=== PATIENT | male | born 1960 | race Caucasian/White ===

== ENCOUNTER 2020-07-14 11:53 | Inpatient (IN) | payer SELFPAY ==
[~2020-07-14] VITALS: Ht 185.4 cm; Wt 95.3 kg
[2020-07-14] MEDS ORDERED: SODIUM CHLORIDE 0.9% 1000ML 1,000 ML IV STA (12:22)
[2020-07-14] MEDS ORDERED: PROMETHAZINE 25MG/ NS 50ML (IV) IV ONE (12:30)
[2020-07-14] MEDS ORDERED: KETOROLAC TROMETHAMINE 30 MG/ML VIAL IV ONE (12:30)
[2020-07-14] MEDS ORDERED: FAMOTIDINE 20 MG/2 ML VIAL IV ONE ×2 (12:30→12:54)
[2020-07-14] MEDS ORDERED: DIATRIZOATE MEGL/DIATRIZOA SOD 30 ML BTL PO ONE (12:35)
[2020-07-14] MEDS ORDERED: MIRALAX17 GM PO (12:39)
[2020-07-14] MEDS ORDERED: ZOFRAN4 MG PO (12:39)
[2020-07-14] MEDS ORDERED: MAGNESIUM CITR296 ML (12:39)
[2020-07-14] MEDS ORDERED: SODIUM CHLORIDE 0.9% 50ML 50 ML ONE ×2 (12:44→12:55)
[2020-07-14] MEDS ORDERED: IOPAMIDOL 370 MG/ML 200 ML INFUS..BTL INJ ONE (12:44)
[2020-07-14] MEDS ORDERED: KETOROLAC TROMETHAMINE 30 MG/ML VIAL ONE (12:54)
[2020-07-14] MEDS ORDERED: SODIUM CHLORIDE 0.9% 1000ML 1,000 ML ONE (12:54)
[2020-07-14] MEDS ORDERED: PROMETHAZINE HCL (IM) 25 MG/ML VIAL IM ONE (12:54)
[2020-07-14] MEDS ORDERED: PIPER-TAZ 3.375 GM 50 ML IV ONE (13:15)
[2020-07-14 13:40] LABS: BASOPHILS % 0.1 % (0.0-1.0); EOSINOPHILS % 0.2 % (0.0-6.0); HEMATOCRIT 46.1 % (38.2-49.6); HEMOGLOBIN 15.7 g/dL (14.0-18.0); MEAN CORPUSCULAR HGB CONC 34.1 g/dL (31-35); MONOCYTES # (AUTO) 1.2 (0.2-0.8); MONOCYTES % 10.6 % (4.4-11.3); NEUTROPHILS # (AUTO) 7.7 (2.1-6.9); NEUTROPHILS % 70.6 % (38.7-80.0); PLATELET COUNT 299 x10e3/uL (140-360); RED BLOOD COUNT 5.24 x10e6/uL (4.3-5.7); RED CELL DISTRIBUTION WIDTH 12.6 % (11.7-14.4)
[2020-07-14] MEDS ORDERED: MORPHINE SULFATE INJ 4 MG/ML INJ 1ML IV PRN (15:00)
[2020-07-14] MEDS ORDERED: PROMETHAZINE 25MG/ NS 50ML (IV) IV PRN (15:00)
[2020-07-14] MEDS ORDERED: DIPHENHYDRAMINE HCL INJ 50 MG/ML VIAL IV PRN (15:00)
[2020-07-14] MEDS ORDERED: FAMOTIDINE 20 MG/2 ML VIAL IV SCH (17:00)
[2020-07-14] MEDS: D5.45%NS/KCL 20MEQ 1,000 ML IV SCH (17:37)
[2020-07-14 17:41] VITALS: BP 119/77
[2020-07-14] MEDS ORDERED: ACETAMINOPHEN 325 MG TAB PO PRN (19:45)
[2020-07-14] MEDS ORDERED: HYDRALAZINE HCL 20 MG/ML VIAL IV PRN (19:45)
[2020-07-14 20:11] VITALS: BP 126/96
[2020-07-14] MEDS ORDERED: MORPHINE SULFATE INJ 2 MG/ML SYR IV PRN (20:30)
[2020-07-15] VITALS (8 sets, daily range): BP systolic 117–141; BP diastolic 71–89
[2020-07-15] MEDS: D5.45%NS/KCL 20MEQ 1,000 ML IV SCH (00:38)
[2020-07-15 04:56] LABS: BASOPHILS % 0.2 % (0.0-1.0); EOSINOPHILS # (AUTO) 0.1 (0.0-0.4); EOSINOPHILS % 0.6 % (0.0-6.0); HEMATOCRIT 43.1 % (38.2-49.6); HEMOGLOBIN 14.6 g/dL (14.0-18.0); LYMPHOCYTES # (AUTO) 1.8 (1.0-3.2); LYMPHOCYTES % 22.2 % (18.0-39.1); MEAN CORPUSCULAR HEMOGLOBIN 29.8 pg (28-32); MEAN CORPUSCULAR HGB CONC 33.9 g/dL (31-35); MONOCYTES # (AUTO) 0.9 (0.2-0.8); MONOCYTES % 10.9 % (4.4-11.3); NEUTROPHILS # (AUTO) 5.3 (2.1-6.9); NEUTROPHILS % 65.7 % (38.7-80.0); PLATELET COUNT 255 x10e3/uL (140-360); RED CELL DISTRIBUTION WIDTH 12.6 % (11.7-14.4)
[2020-07-15 05:19] LABS: BLOOD UREA NITROGEN 14 mg/dL (7-26); BUN/CREATININE RATIO 16 (6-25); CALCIUM 8.1 mg/dL (8.4-10.2); CARBON DIOXIDE 27 mmol/L (22-29); CHLORIDE 97 mmol/L (98-107); CREATININE, SERUM 0.86 mg/dL (0.72-1.25); EST GLOMERULAR FILTRATION RATE > 60 ML/MIN (60-); GLUCOSE 102 mg/dL (74-118); SODIUM 136 mmol/L (136-145)
[2020-07-15 05:39] LABS: MAGNESIUM 2.3 MG/DL (1.3-2.1); PHOSPHORUS 2.8 MG/DL (2.3-4.7)
[2020-07-15] MEDS ORDERED: ONDANSETRON HCL INJ 2MG/ML 2ML 2 MG/ML VIAL IV PRN (08:00)
[2020-07-15] MEDS ORDERED: NICOTINE 14 MG/EA PATCH TOP PRN (08:00)
[2020-07-15] MEDS ORDERED: MELATONIN 5 MG TABLET PO PRN (08:00)
[2020-07-15] MEDS: FAMOTIDINE 20 MG/2 ML VIAL IV SCH ×2 (09:05→16:51)
[2020-07-15] MEDS: MORPHINE SULFATE INJ 2 MG/ML SYR IV PRN ×2 (09:05→19:37)
[2020-07-15] MEDS: SODIUM CHLORIDE 0.9% 1000ML 1,000 ML IV SCH ×2 (09:05→19:04)
[2020-07-15] MEDS ORDERED: LORAZEPAM INJ 2 MG/ML VIAL IV PRN (23:30)
[2020-07-16] VITALS (8 sets, daily range): BP systolic 132–153; BP diastolic 72–82
[2020-07-16] MEDS: SODIUM CHLORIDE 0.9% 1000ML 1,000 ML IV SCH ×2 (04:30→06:13)
[2020-07-16] MEDS: MORPHINE SULFATE INJ 2 MG/ML SYR IV PRN (04:41)
[2020-07-16] MEDS: FAMOTIDINE 20 MG/2 ML VIAL IV SCH ×2 (08:05→16:53)
[2020-07-16] MEDS ORDERED: TYLENOL # 31 EA PO (11:31)
[2020-07-17 00:32] VITALS: BP 150/87
[2020-07-17] MEDS ORDERED: ACETAMINOPHEN 325 MG TAB PO PRN (00:45)
[2020-07-17] MEDS: SODIUM CHLORIDE 0.9% 1000ML 1,000 ML IV SCH ×3 (01:25→12:00)
[2020-07-17 04:00] VITALS: BP 130/76
[2020-07-17 07:43] VITALS: BP 130/77
[2020-07-17] MEDS: FAMOTIDINE 20 MG/2 ML VIAL IV SCH (07:54)
[2020-07-17 07:55] VITALS: BP 130/77
[2020-07-17] MEDS ORDERED: ZOFRAN4 MG PO (14:12)
[2020-07-17] MEDS ORDERED: MIRALAX17 GM PO (14:12)
== END 2020-07-17 15:35 | disposition home or self-care (01) | DRG 390 ==
LOC: FSED 12:25 → ERHOLD 14:54 → UNDOADMOB 15:44 → ERHOLD 16:47 → IMCU 16:47 → OBSVTOIN 07-15 08:16
PROVIDERS: ADMIT Internal Medicine; ATTEND Internal Medicine
DX: K56.50 Intestinal adhesions [bands], unspecified as to partial versus complete obstruction (principal); E86.0 Dehydration; Z90.49 Acquired absence of other specified parts of digestive tract; Z83.3 Family history of diabetes mellitus; Z72.0 Tobacco use; I10 Essential (primary) hypertension; E66.9 Obesity, unspecified; Z68.27 Body mass index [BMI] 27.0-27.9, adult; Z20.822 Contact with and (suspected) exposure to COVID-19
CPT/HCPCS: 36415; 74018; 74177; 80048; 80053; 81003; 83735; 84100; 85025; 96361; 96374; 96375; 99284; G0378; J1885; J2270; J2405; J2543; J2550; J7030; Q9967; U0002

== ENCOUNTER 2020-08-14 21:43 | Emergency (ER) | payer SELFPAY ==
[~2020-08-14] VITALS: Ht 185.4 cm; Wt 95.3 kg
[~2020-08-14 21:43] MED LIST: MAGNESIUM CITR296 ML; MIRALAX17 GM PO; TYLENOL # 31 EA PO; ZOFRAN4 MG PO
[2020-08-14] MEDS ORDERED: MORPHINE SULFATE INJ 4 MG/ML INJ 1ML IV STA (22:21)
[2020-08-14] MEDS ORDERED: ONDANSETRON HCL INJ 2MG/ML 2ML 2 MG/ML VIAL IV STA (22:21)
[2020-08-14] MEDS ORDERED: SODIUM CHLORIDE 0.9% 1000ML 1,000 ML IV SCH (22:30)
[2020-08-14] MEDS ORDERED: IOPAMIDOL 370 MG/ML 200 ML INFUS..BTL INJ ONE (22:31)
[2020-08-14] MEDS ORDERED: SODIUM CHLORIDE 0.9% 50ML 50 ML ONE (22:31)
[2020-08-14] MEDS ORDERED: SODIUM CHLORIDE 0.9% 1000ML 1,000 ML ONE (22:36)
[2020-08-14] MEDS ORDERED: MORPHINE SULFATE INJ 4 MG/ML INJ 1ML ONE (22:36)
[2020-08-14] MEDS ORDERED: ONDANSETRON HCL INJ 2MG/ML 2ML 2 MG/ML VIAL ONE (22:36)
[2020-08-14] MEDS ORDERED: DIATRIZOATE MEGL/DIATRIZOA SOD 30 ML BTL PO ONE (22:56)
[2020-08-14] MEDS ORDERED: FENTANYL CITRATE/PF 100MCG/2 ML INJ ONE (23:04)
[2020-08-14] MEDS ORDERED: CEFEPIME HCL 2 GM VIAL IV SCH (23:15)
[2020-08-14] MEDS ORDERED: METRONIDAZOLE 500MG/NS 100ML 100 ML IV ONE (23:15)
[2020-08-14] MEDS ORDERED: FENTANYL CITRATE/PF 100MCG/2 ML INJ IV ONE (23:30)
[2020-08-14] MEDS ORDERED: CEFEPIME 1GM/NS 0.9% 50 ML 50 ML IV SCH (23:45)
[2020-08-15] MEDS ORDERED: FENTANYL CITRATE/PF 100MCG/2 ML INJ IV ONE (01:15)
== END 2020-08-15 01:14 | disposition home or self-care (01) ==
LOC: FSED 21:46
DX: G89.18 Other acute postprocedural pain (principal); R50.9 Fever, unspecified; D72.829 Elevated white blood cell count, unspecified; K57.30 Diverticulosis of large intestine without perforation or abscess without bleeding
CPT/HCPCS: 74177; 87040; 99284; J2270; J2405; J3010; J7030; Q9967